=== PATIENT | male | born 1940 | race American Indian/Alaskan Native ===

== ENCOUNTER 2020-08-05 17:34 | Emergency (ER) | payer OTHER ==
[~2020-08-05] VITALS: Ht 182.9 cm; Wt 86.2 kg
[~2020-08-05 17:34] MED LIST: ASPIR 8181 MG; ATENOLOL25 MG; CARDURA8 MG
[2020-08-05] MEDS ORDERED: LASIX20 MG (18:16)
[2020-08-05] MEDS ORDERED: XARELTO20 MG (18:17)
[2020-08-05] MEDS ORDERED: TOPROL XL50 M1 (18:17)
== END 2020-08-06 07:09 | disposition designated cancer center or children's hospital (05) ==
LOC: ER 17:34
DX: C71.2 Malignant neoplasm of temporal lobe (principal); R41.0 Disorientation, unspecified; Z03.818 Encounter for observation for suspected exposure to other biological agents ruled out
CPT/HCPCS: 70450; 70552; 93005; A9575; 70545

== ENCOUNTER 2020-09-21 10:34 | Emergency (ER) | payer OTHER ==
[~2020-09-21] VITALS: Ht 182.9 cm; Wt 73.5 kg
[~2020-09-21 10:34] MED LIST changes: +LASIX20 MG; +TOPROL XL50 M1; +XARELTO20 MG
[2020-09-21] MEDS ORDERED: KEPPRA500 MG PO (10:49)
[2020-09-21] MEDS ORDERED: HYDROCHLOROTHIA50 MG PO (10:50)
[2020-09-21] MEDS ORDERED: CARDURA8 MG PO (10:50)
== END 2020-09-21 12:41 | disposition home or self-care (01) ==
LOC: ER 10:34
DX: R33.8 Other retention of urine (principal)

== ENCOUNTER 2020-10-06 22:51 | Emergency (ER) | payer OTHER ==
[~2020-10-06] VITALS: Ht 182.9 cm; Wt 65.8 kg
[~2020-10-06 22:51] MED LIST changes: +CARDURA8 MG PO; +HYDROCHLOROTHIA50 MG PO; +KEPPRA500 MG PO
[2020-10-06] MEDS ORDERED: TAMS0.4C (23:31)
== END 2020-10-06 23:40 | disposition home or self-care (01) ==
LOC: ER 22:51
DX: N40.0 Benign prostatic hyperplasia without lower urinary tract symptoms (principal); R33.8 Other retention of urine

== ENCOUNTER 2020-12-08 17:13 | Emergency (ER) | payer OTHER ==
[~2020-12-08] VITALS: Ht 182.9 cm; Wt 68.0 kg
[~2020-12-08 17:13] MED LIST changes: +TAMS0.4C
== END 2020-12-09 14:47 | disposition designated cancer center or children's hospital (05) ==
LOC: ER 17:13 → CPU-OBS 17:43 → ER 12-09 14:47
DX: D49.6 Neoplasm of unspecified behavior of brain (principal); C79.31 Secondary malignant neoplasm of brain; N39.0 Urinary tract infection, site not specified; B96.89 Other specified bacterial agents as the cause of diseases classified elsewhere; Z20.822 Contact with and (suspected) exposure to COVID-19
CPT/HCPCS: 51702; 70450; 93005; G0378; G0379